=== PATIENT | female | born 1970 | race Caucasian/White ===

== ENCOUNTER 2019-05-01 17:39 | Observation (INO) | payer MEDICARE ==
[~2019-05-01] VITALS: Ht 162.6 cm; Wt 73.0 kg
[2019-05-01 17:49] VITALS: BP 171/96
[2019-05-01 18:00] LABS: APPEARANCE CLEAR (CLEAR); COLOR ORANGE (YELLOW)
[2019-05-01 18:02] LABS: BACTERIA FEW /hpf (NEGATIVE); RED CELLS - URINE 0-5 /hpf (0-5); WHITE CELLS - URINE 0-5 /hpf (NEGATIVE)
[2019-05-01 18:04] LABS: BASOPHILS 0.2 % (0-2); EOSINOPHILS 2.9 % (0-7); HEMATOCRIT 36.3 % (36.0-48.0); HEMOGLOBIN 12.3 g/dL (12-16); IMMATURE GRANULOCYTES 0.2 % (0-5); LYMPHOCYTES 22.5 % (15-50); MCH 30.3 pg (26.0-34.0); MCHC 33.9 g/dL (31.0-37.0); MCV 89.4 fL (80.0-100.0); MONOCYTES 10.1 % (2-11); NEUTROPHILS 64.1 % (40-80); RBC 4.06 10x6/uL (4.00-5.40); RDW 14.1 % (11.5-14.5); WBC 8.9 10x3/uL (4.8-10.8)
[2019-05-01 18:05] LABS: HCG URINE NEGATIVE (NEGATIVE); PLATELET COUNT 359 10x3/uL (130-400)
[2019-05-01 18:14] LABS: UDS - AMPHET POSITIVE QUAL (NEGATIVE); UDS - BARB NEGATIVE QUAL (NEGATIVE); UDS - BENZO NEGATIVE QUAL (NEGATIVE); UDS - COCAINE NEGATIVE QUAL (NEGATIVE); UDS - OPIATE NEGATIVE QUAL (NEGATIVE); UDS - PCP NEGATIVE QUAL (NEGATIVE); UDS - THC NEGATIVE QUAL (NEGATIVE)
--- NOTE | 2019-05-01 18:25 | NUR ---
SPOKE WITH [facility] IN POISON CONTROL. MONITOR PATIENT FOR QRS WIDENING DUE TO TRICYCLIC AND VISTARIL. ALSO MONITOR FOR SEIZURE AND ANTICHOLINERGIC SX. IF PATIENT PRESENTS WITH QRS WIDENING RECOMMENDS STARTING A BICARB DRIP. AVOID BETABLOCKERS DUE TO METH, AND ABG TO RULE OUT ACIDOSIS. SYMPTOM TREATMENT WITH BENZOS.
--- NOTE | 2019-05-01 18:27 | NUR ---
PT COLOR WNL FOR RACE. RESPIRATIONS ARE EVEN AND UNLABORED. VSS. NO DISTRESS NOTED. PT APPEARS TO BE SLEEPING WITH EYES CLOSED. WHEN AWAKE PT APPEARS AGIGATED.WILL CONT OT MONITOR FOR CHANGES.
--- NOTE | 2019-05-01 18:27 | NUR ---
ADVISED [facility] WADE OF RECOMMENDATIONS FROM POISON CONTROL
[2019-05-01 18:40] LABS: CALC OSMOLALITY 277 mosm/kg (275-300); CALCIUM 9.2 mg/dL (8.5-10.1); CARBON DIOXIDE 24.6 mmol/L (21.0-32.0); CHLORIDE - SERUM 105 mmol/L (98-107); CREATININE - SERUM 0.7 mg/dL (0.6-1.3); GLUCOSE 110 mg/dL (74-106); POTASSIUM - SERUM 4.2 mmol/L (3.5-5.1); SODIUM 140 mmol/L (136-145); UREA NITROGEN 7 mg/dL (7-18); eGFR NON AFRICAN AMERICAN > 90 mL/min (90-120)
[2019-05-01 18:53] LABS: ALBUMIN 4.1 g/dL (3.4-5.0); ALKALINE PHOSPHATASE 112 U/L (46-116); ALT (SGPT) 32 U/L (10-68); BILIRUBIN - TOTAL 0.59 mg/dL (0.2-1.3); MAGNESIUM - SERUM 2.3 mg/dL (1.8-2.4); PROTEIN - SERUM 7.4 g/dL (6.4-8.2)
--- NOTE | 2019-05-01 20:30 | NUR ---
Received patient from ER to 2310 via stretcher, patient ambulated self to bed and connected to monitor. Patient AO x4, answers appropriately/follows instructions. S1/S2 noted NSR on telemetry, rythmic and regular. Breathing is even/unlabored on room air with O2 sat 96%, lung sounds clear bilateral upper and mid with diminished lower. Abdomen is flat/soft with bowel sounds active x4, non-tender. Patient utilizes bedside commode wihtout assist, 350ml orange urine noted with patient stating she takes Phenazopyridine at home. Full ROM all extremities with all pulses palpable, cap refill < 3 sec with skin cool/dry. Denies pain or other needs at this time, see flowsheet for details. All VSS and will continue to monitor.
[2019-05-01 20:36] VITALS: BP 146/92; BMI 27.8
[2019-05-01 21:00] VITALS: BP 156/85
[2019-05-01 22:00] VITALS: BP 134/76
[2019-05-01 23:00] VITALS: BP 126/71
--- NOTE | 2019-05-01 23:00 | NUR ---
Reassessment completed per flowsheet, no changes noted from previous assessment. Patient AO x4, answers appropriately/follows instructions. S1/S2 noted NSR on telemetry, rythmic and regular. Breathing is even/unlabored on room air with O2 sat 95%, lung sounds clear bilateral upper and mid with diminished lower. All pulses palpable with full ROM, skin cool/dry with cap refill < 3 sec. Denies pain or other needs at this time, see flowsheet for details. All VSS and will continue to monitor.
[2019-05-02] VITALS (12 sets, daily range): BP systolic 121–165; BP diastolic 55–94; Ht 162.6 cm; Wt 73.0 kg
--- NOTE | 2019-05-02 01:00 | NUR ---
Patient awake in bed requesting snack, provided. Patient AO x4, answers appropriately/follows instructions. Patient utilizes bedside commode without assist, 250ml orange urine noted. Returned to bed and repositioned for comfort, no further needs and will continue to monitor.
--- NOTE | 2019-05-02 03:00 | NUR ---
Reassessment completed per flowsheet, no changes noted from previous assessment. Patient AO x4, answers appropriately/follows instructions. S1/S2 noted NSR on telemetry, rythmic and regular. Breathing is even/unlabored on room air with O2 sat 96%, lung sounds clear bilateral upper and mid with diminished lower. All pulses palpable with full ROM all extremities, slight weakness noted bilateral lower with skin warm/dry. Denies pain or other needs at this time, see flowsheet for details. All VSS and will continue to monitor.
[2019-05-02] MEDS ORDERED: TRILEPTAL600 MG PO (04:13)
[2019-05-02] MEDS ORDERED: TOVIAZ8 MG PO (04:13)
[2019-05-02] MEDS ORDERED: VOLTAREN75 MG PO (04:14)
[2019-05-02] MEDS ORDERED: HYDROXYZINE HCL50 MG PO (04:15)
[2019-05-02] MEDS ORDERED: NEURONTIN 400400 MG PO (04:16)
[2019-05-02] MEDS ORDERED: ZYPREXA15 MG PO (04:16)
[2019-05-02] MEDS ORDERED: ELAVIL25 MG PO (04:17)
[2019-05-02] MEDS ORDERED: EFFEXOR XR150 MG PO (04:17)
[2019-05-02] MEDS ORDERED: AMITRIPTYLINE100 MG PO (04:22)
[2019-05-02] MEDS ORDERED: ZOFRAN ODT4 MG/UDTAB PO (04:23)
[2019-05-02] MEDS ORDERED: ELMIRON100 MG PO (04:24)
[2019-05-02] MEDS ORDERED: STRATTERA40 MG PO (04:24)
[2019-05-02] MEDS ORDERED: VISTARIL50 MG PO (04:25)
[2019-05-02] MEDS ORDERED: STRATTERA60 MG PO (04:26)
[2019-05-02] MEDS ORDERED: MYRBETRIQ50 MG PO (04:26)
[2019-05-02] MEDS ORDERED: PROTONIX20 MG (04:32)
[2019-05-02] MEDS ORDERED: MACROBID100 MG PO (04:33)
[2019-05-02] MEDS ORDERED: PROZAC20 MG PO (04:33)
--- NOTE | 2019-05-02 05:00 | NUR ---
Patient resting in bed with eyes open, no s/s of distress at this time. Patient Afebrile with full ROM all extremities, slight weakness noted bilateral lower. All pulses palpable with skin warm/dry, no tremors/spasms observed. Patient answers appropriately/follows instructions, slight delay in some responses noted. Denies pain or other needs, will continue to monitor.
--- NOTE | 2019-05-02 07:10 | NUR ---
REPORT RECEIVED, SHIFT ASSESSMENT COMPLETE, PT IS ALERT AND ORIENTED, ON RA WITH 97% O2 SAT. ALL PPP, VSS, CALL LIGHT IN REACH
--- NOTE | 2019-05-02 07:54 | NUR ---
RONDA VELEZ AT BEDSIDE, UPDATE GIVEN,
--- NOTE | 2019-05-02 09:30 | NUR ---
PT RESTING AT THIS TIME, DENIES ANY WANTS OR NEEDS
--- NOTE | 2019-05-02 11:15 | NUR ---
NO NEEDS NOTED AT THIS TIME, VSS, CALL LIGHT IN REACH
--- NOTE | 2019-05-02 16:45 | NUR ---
DR. TRAORE AT BEDSIDE, SPOKE AT LENGHT WITH PT, OK TO DC HOME AT THIS TIME
--- NOTE | 2019-05-02 19:45 | MORECARE ---
CASE MANAGEMENT DISCHARGE SUMMARY PATIENT: ANTOINETTE SOLANO UNIT: [id number] ADM DATE: 05/01/19 AGE: 48 : [birth year] SEX: F ROOM/BED: D.2310 AUTHOR: SRINIVASA LOWERY PHYSICIAN: REFERRING PHYSICIAN: INGRID CAI MD DATE OF SERVICE: 05/02/19 Discharge Plan Patient Name: ANTOINETTE SOLANO Facility: [facility]:[place] : 1970 Planned Disposition: Anticipated Discharge Date: Discharge Date: Expected LOS: Initial Reviewer: [email or web address] Initial Review Date: 05/01/2019 Generated: 05/02/19 8:44 pm Patient Name: ANTOINETTE SOLANO Page [id number] at 1945 All edits/amendments must be made on the electronic document DICTATION DATE: 05/02/191943 MANAGER EMBALMER FUNERAL DIRECTOR: STEFANY 05/02/191943 RPT#: [id number] DC DATE: STATUS: ADM IN [facility] [address] [place] [address] END OF REPORT
--- NOTE | 2019-05-03 08:42 | MORECARE ---
CASE MANAGEMENT DISCHARGE SUMMARY PATIENT: ANTOINETTE SOLANO UNIT: [id number] ADM DATE: 05/01/19 AGE: 48 : [birth year] SEX: F ROOM/BED: D.2310 AUTHOR: SRINIVASA LOWERY PHYSICIAN: REFERRING PHYSICIAN: INGRID CAI MD DATE OF SERVICE: 05/03/19 Discharge Plan Patient Name: ANTOINETTE SOLANO [facility] [facility] 1970 Planned Disposition: Anticipated Discharge Date: Discharge Date: 05/02/2019 Expected LOS: Initial Reviewer: [email or web address] Initial Review Date: 05/01/2019 Generated: 05/03/19 9:42 am Last DP export: 05/02/19 6:45 p Patient Name: ANTOINETTE SOLANO Page [id number] at 0842 All edits/amendments must be made on the electronic document DICTATION DATE: 05/03/19841 TOW OPERATOR: STEFANY 05/03/19841 RPT#: [id number] DC DATE:05/02/19 STATUS: DIS IN [facility] [address] [place] [address] END OF REPORT
--- NOTE | 2019-05-03 12:52 | CN ---
PATIENT NAME:ANTOINETTE SOLANO MEDICAL RECORD: [id number] : 68 LOCATION:MARTINE.2310 ADMIT DATE: 05/01/19 ACCOUNT: [id number] CONSULTING PHYSICIAN: EVENS TRAORE MD REFERRING PHYSICIAN: INGRID CAI MD DATE OF CONSULTATION: 05/02/2019 IDENTIFYING DATA: The patient is a 48-year-old and she is admitted to the hospital on a voluntary basis. CHIEF COMPLAINT: Paranoia and fear. HISTORY OF PRESENT ILLNESS: The patient used a large amount of methamphetamine yesterday. She became paranoid and frightened. She took some of her home medications in an effort to relieve the paranoia and anxiety, but it was unsuccessful, so she came to the Emergency Room. At no time did she threaten to harm herself or others or give any indication that she intended to do so. She has been hospitalized overnight and now is calm, cooperative, awake, and interactive. She tells me that she has a terrible problem with methamphetamine and that she has a longstanding problem with this drug for which she had been abstinent on, but about 9 months ago relapsed. She denies current paranoia, anxiety as well as thoughts of harming herself or others. She denies depressive symptoms. She says she is a little confused about what medications to take and she feels that she is probably taking too many. ASSESSMENT: 1. Stimulant use disorder. 2. Bipolar disorder by history. PLAN: At this time, the patient does not present as an acute risk to herself or others. She has no evidence of significant mood symptoms that would place her in danger and the psychotic symptoms were clearly just transient and have now resolved. She is seen through the local mental health center. Her current medications include Trileptal, Atarax, Neurontin, Zyprexa, Elavil, Effexor, Strattera, Vistaril, and Prozac. If that is correct, it is combination of medicines that are inappropriate in my view. I would recommend stopping the Strattera because it is a stimulant. She has a history of stimulant abuse and it is an inappropriate medication to use in such individuals. The Atarax and Vistaril are antihistaminic and are not going to help with her clearness of thinking and are inappropriate as well. I would also recommend the Elavil be discontinued because of its high toxicity and overdose. I suspect she is simply taking it for sleep consolidation, but I think her sleep will improve if she stops using methamphetamine. She is on 2 different antidepressants, Effexor and Prozac. I recommend the Prozac be discontinued. In my opinion, she should be discharged on Trileptal, Neurontin, Zyprexa, and Effexor. Follow up should be with the [facility]. I have offered her inpatient substance abuse treatment, which she has declined. She does not require inpatient mental health treatment. She has a sponsor, whose is Jazmyn and she is going to contact Ms. Eldridge before leaving the hospital. I have instructed her to follow up with the [facility] and then I want her to go to 90 Narcotics Anonymous meetings in the next 90 days. TRANSINT:[id number] Voice Confirmation ID: [id number] DOCUMENT ID: [id number] CONSULT REPORT [id number] ANTOINETTE SOLANO PETER MD at 1252 CC: [id number] DICTATION DATE: 05/02/19 170 ORDERING MACHINE OPERATOR: 05/03/19 0136 DIS IN 05/02/19 [facility] [address] [place] [address]
== END 2019-05-02 17:26 | disposition home or self-care (01) ==
LOC: D.ER 17:39 → D.ICU 19:07 → OBSVTIME 19:07 → D.ICU 05-02 17:26
PROVIDERS: Emergency Medicine; ADMIT Internal Medicine Nephrology; ATTEND Internal Medicine Nephrology
DX: T50.901A Poisoning by unspecified drugs, medicaments and biological substances, accidental (unintentional), initial encounter (principal); F15.180 Other stimulant abuse with stimulant-induced anxiety disorder; E03.9 Hypothyroidism, unspecified; N73.9 Female pelvic inflammatory disease, unspecified; F31.9 Bipolar disorder, unspecified; E87.3 Alkalosis

== ENCOUNTER 2019-06-04 06:19 | Emergency (ER) | payer MEDICARE ==
[~2019-06-04] VITALS: Ht 162.6 cm; Wt 72.7 kg
[~2019-06-04 06:19] MED LIST: AMITRIPTYLINE100 MG PO; EFFEXOR XR150 MG PO; ELAVIL25 MG PO; ELMIRON100 MG PO; HYDROXYZINE HCL50 MG PO; MACROBID100 MG PO; MYRBETRIQ50 MG PO; NEURONTIN 400400 MG PO; PROTONIX20 MG; PROZAC20 MG PO; STRATTERA40 MG PO; STRATTERA60 MG PO; TOVIAZ8 MG PO; TRILEPTAL600 MG PO; VISTARIL50 MG PO; VOLTAREN75 MG PO; ZOFRAN ODT4 MG/UDTAB PO; ZYPREXA15 MG PO
[2019-06-04 06:26] VITALS: Ht 162.6 cm; Wt 72.7 kg
[2019-06-04 07:03] LABS: BASOPHILS 0.2 % (0-2); EOSINOPHILS 0.2 % (0-7); HEMATOCRIT 33.3 % (36.0-48.0); HEMOGLOBIN 11.7 g/dL (12-16); IMMATURE GRANULOCYTES 0.2 % (0-5); MCH 28.5 pg (26.0-34.0); MCHC 35.1 g/dL (31.0-37.0); MEAN PLATELET VOLUME 9.3 fL (7.4-10.4); NEUTROPHILS 79.4 % (40-80); RBC 4.11 10x6/uL (4.00-5.40); RDW 13.7 % (11.5-14.5)
[2019-06-04 07:11] LABS: PLATELET COUNT 245 10x3/uL (130-400)
[2019-06-04 07:25] LABS: CALC OSMOLALITY 270 mosm/kg (275-300); CALCIUM 8.7 mg/dL (8.5-10.1); CARBON DIOXIDE 27.5 mmol/L (21.0-32.0); CHLORIDE - SERUM 99 mmol/L (98-107); CREATININE - SERUM 0.7 mg/dL (0.6-1.3); GLUCOSE 125 mg/dL (74-106); POTASSIUM - SERUM 3.4 mmol/L (3.5-5.1); SODIUM 136 mmol/L (136-145); UREA NITROGEN 8 mg/dL (7-18); eGFR NON AFRICAN AMERICAN > 90 mL/min (90-120)
[2019-06-04 07:41] LABS: ALBUMIN 3.9 g/dL (3.4-5.0); ALKALINE PHOSPHATASE 112 U/L (46-116); ALT (SGPT) 28 U/L (10-68); BILIRUBIN - TOTAL 0.27 mg/dL (0.2-1.3); CREATINE KINASE 129 UL (21-215); MAGNESIUM - SERUM 1.9 mg/dL (1.8-2.4); PRO BNP 648 pg/mL (0-125); THYROID STIMULATING HORMONE 13.55 uIU/mL (0.36-3.74)
[2019-06-04 07:45] LABS: TROPONIN-I < 0.017 ng/mL (0.000-0.060)
[2019-06-04 08:05] LABS: C-REACTIVE PROTEIN 3.2 mg/dL (0.0-0.9)
[2019-06-04] MEDS ORDERED: SYNTHROID50 MCG PO (08:05)
[2019-06-04 08:28] LABS: T4 THYROXIN - FREE 0.57 ng/dL (0.76-1.46); T4 THYROXINE 4.7 ug/dL (4.7-13.3)
[2019-06-04 08:38] VITALS: BP 132/74
[2019-06-04] MEDS ORDERED: CHLORPROMAZINE200 MG PO (20:38)
== END 2019-06-04 08:39 | disposition home or self-care (01) ==
LOC: D.ER 06:19
PROVIDERS: Emergency Medicine; Family Medicine
DX: R07.89 Other chest pain (principal); E03.9 Hypothyroidism, unspecified; F15.10 Other stimulant abuse, uncomplicated

== ENCOUNTER 2019-06-04 20:32 | Emergency (ER) | payer MEDICARE ==
[~2019-06-04] VITALS: Ht 162.6 cm; Wt 72.7 kg
[~2019-06-04 20:32] MED LIST changes: +SYNTHROID50 MCG PO
[2019-06-04 20:35] VITALS: Ht 162.6 cm; Wt 72.7 kg
[2019-06-04] MEDS ORDERED: CHLORPROMAZINE200 MG PO (20:38)
[2019-06-04 20:56] LABS: BASOPHILS 0.1 % (0-2); EOSINOPHILS 0.6 % (0-7); HEMATOCRIT 35.5 % (36.0-48.0); HEMOGLOBIN 12.7 g/dL (12-16); IMMATURE GRANULOCYTES 0.3 % (0-5); LYMPHOCYTES 20.4 % (15-50); MCH 28.9 pg (26.0-34.0); MCHC 35.8 g/dL (31.0-37.0); MCV 80.7 fL (80.0-100.0); MEAN PLATELET VOLUME 9.4 fL (7.4-10.4); MONOCYTES 10.1 % (2-11); NEUTROPHILS 68.5 % (40-80); PLATELET COUNT 285 10x3/uL (130-400); RDW 13.7 % (11.5-14.5); WBC 6.8 10x3/uL (4.8-10.8)
[2019-06-04 21:04] LABS: APTT 28.4 SECONDS (22.8-39.4); INR 1.06 (0.85-1.17); PROTIME 13.3 SECONDS (11.6-15.0)
[2019-06-04 21:06] LABS: CALC OSMOLALITY 268 mosm/kg (275-300); CALCIUM 9.1 mg/dL (8.5-10.1); CARBON DIOXIDE 26.3 mmol/L (21.0-32.0); CHLORIDE - SERUM 96 mmol/L (98-107); CREATININE - SERUM 0.7 mg/dL (0.6-1.3); GLUCOSE 163 mg/dL (74-106); POTASSIUM - SERUM 3.2 mmol/L (3.5-5.1); SODIUM 134 mmol/L (136-145); eGFR NON AFRICAN AMERICAN > 90 mL/min (90-120)
[2019-06-04 21:07] LABS: UREA NITROGEN 5 mg/dL (7-18)
[2019-06-04 21:09] LABS: APPEARANCE CLOUDY (CLEAR); BILIRUBIN NEGATIVE (NEGATIVE); GLUCOSE NEGATIVE (NEGATIVE); KETONE SMALL mg/dL (NEGATIVE); NITRITE NEGATIVE (NEGATIVE); PROTEIN 1+ mg/dL (NEGATIVE); SPECIFIC GRAVITY 1.015 (1.005-1.020); UROBILINOGEN NORMAL (NORMAL)
[2019-06-04 21:11] LABS: BACTERIA MODERATE /hpf (NEGATIVE); WHITE CELLS - URINE 0-5 /hpf (NEGATIVE)
[2019-06-04 21:18] LABS: UDS - AMPHET POSITIVE QUAL (NEGATIVE); UDS - BARB NEGATIVE QUAL (NEGATIVE); UDS - BENZO NEGATIVE QUAL (NEGATIVE); UDS - COCAINE NEGATIVE QUAL (NEGATIVE); UDS - OPIATE NEGATIVE QUAL (NEGATIVE); UDS - PCP NEGATIVE QUAL (NEGATIVE); UDS - THC NEGATIVE QUAL (NEGATIVE)
[2019-06-04 21:21] LABS: ALBUMIN 4.1 g/dL (3.4-5.0); ALKALINE PHOSPHATASE 110 U/L (46-116); ALT (SGPT) 31 U/L (10-68); BILIRUBIN - TOTAL 0.46 mg/dL (0.2-1.3); CKMB 6.7 U/L (0.0-3.6); PRO BNP 893 pg/mL (0-125); PROTEIN - SERUM 7.4 g/dL (6.4-8.2)
[2019-06-04 21:22] LABS: CREATINE KINASE 256 UL (21-215); TROPONIN-I < 0.017 ng/mL (0.000-0.060)
[2019-06-05] VITALS: BP 132/89
== END 2019-06-05 | disposition home or self-care (01) ==
LOC: D.ER 20:32
PROVIDERS: Emergency Medicine
DX: R45.851 Suicidal ideations (principal); F19.10 Other psychoactive substance abuse, uncomplicated; E87.6 Hypokalemia; E07.9 Disorder of thyroid, unspecified